=== PATIENT | female | born 1965 | race Caucasian/White ===

== ENCOUNTER → 2022-08-21 | Outpatient (CLI) | payer OTHER, MEDICARE ==
--- NOTE | 2022-08-21 08:40 | CT ---
EXAMINATION TYPE: CT cervical spine wo con DATE OF EXAM: 08/21/2022 COMPARISON: NONE HISTORY: Chronic neck pain, impaired functional mobility, balance, gait and endurance, CT DLP: 905.90 mGycm. Automated Exposure Control for Dose Reduction was Utilized. TECHNIQUE: CT scan of the cervical spine is obtained without contrast, axial images are obtained, sa gittal and coronal reformatted images are also reviewed. FINDINGS: Cervical spine is visualized in its entirety from C1 through upper thoracic levels, demonst rates slight or subtle grade 1 retrolisthesis of C6 on C7. Prevertebral soft tissue appears within n ormal limits. The C1-C2 articulation is within normal limits on the coronal images. Vertebral body h eight and disc space heights are maintained. Review of axial images shows C2-C3 and C3-C4 levels to appear within normal limits. Axial images C4-C5 level suggests central disc protrusion mildly effaces the anterior thecal sac on a xial image 54, bilateral neural foramina are patent. Axial images at C5-C6 levels suggest broad-based left paracentral disc protrusion effacing the maeve lateral thecal sac on axial image 61 and causing asymmetric moderate left-sided neural foraminal narr owing. Finding can be better evaluated with MRI. Axial images at C6-C7 level shows spondylolisthesis with posterior spur disc complex effacing the ant erior thecal sac and causing mild bilateral neural foraminal narrowing. Axial images at C7-T1 level appear within normal limits. Thyroid gland appears within normal limits. Lung apices show no pneumothorax. Mild calcified plaque i n the right carotid bulb is incidentally noted. IMPRESSION: Subtle Spondylolisthesis and multilevel degenerative change in the cervical spine as deta iled above.
--- NOTE | 2022-08-21 08:58 | CT ---
EXAMINATION TYPE: CT chest wo con DATE OF EXAM: 08/21/2022 COMPARISON: NONE HISTORY: Chronic neck and chest pain, impaired functional mobility, balance, gait and endurance, intr actable low back pain CT DLP: 600.00 mGycm. Automated Exposure Control for Dose Reduction was Utilized. TECHNIQUE: CT scan of the thorax is performed without IV contrast. FINDINGS: LUNGS: Focal reticulation or atelectatic/fibrotic change in the posterior left lower lobe axial image 42. No focal consolidation. No suspicious greater than 5 mm pulmonary nodules or masses There is no pleural effusion or pneumothorax seen. The tracheobronchial tree is patent. MEDIASTINUM: Lack of IV contrast is noted to limit evaluation for mediastinal and especially hilar ad enopathy. There are no definitive greater than 1 cm mediastinal lymph nodes. No cardiomegaly or per icardial effusion is seen. Ascending aortic aneurysm up to 4.4 cm axial image 29. At least mild to mo derate coronary artery calcification. OTHER: Cholecystectomy clips are seen. Mid to low lower thoracic spinal stimulator devices present IMPRESSION: No acute pulmonary process.
--- NOTE | 2022-08-21 09:01 | CT ---
EXAMINATION TYPE: CT lumbar spine wo con DATE OF EXAM: 08/21/2022 7:32 AM COMPARISON: None. HISTORY: Chronic neck pain, impaired functional mobility, balance, gait, and endurance, intractable l ow back pain CT DLP: 2455.90 mGycm Automated exposure control for dose reduction was used. Unenhanced CT of the lumbar spine was performed. Bone and soft tissue window settings are submitted as well as coronal and sagittal reconstructions. There are 5 lumbar-type vertebra. Lumbar spine shows satisfactory alignment without evidence of acute fracture or dislocation. Vertebral body heights and disc space heights are fairly well-preserved. Th ere is thoracic spinal stimulator device entering the epidural region at posterior T12-L1 level. Review of the axial images shows T12-L1 through L2-L3 level to appear within normal limits. Axial images at L3-L4 level show mild to moderate facet arthropathy bilaterally. There is mild efface ment of the left posterolateral thecal sac. Axial images at L4-L5 level show mild/moderate facet arthropathy bilaterally. No large disc herniatio n is seen. Spinal canal is grossly preserved. Axial images at L5-S1 level show posterior spurring or bony projections greater right of midline. Spi nal canal is preserved as is increased epidural fat. There is moderate facet arthropathy bilaterally. Bilateral neural foramina are patent. There is mild/moderate calcified plaque of the aorta extending into branch vessels. IMPRESSION: Multilevel degenerative changes in the mid to lumbar spine as detailed above. No acute fi ndings are evident.
== END | disposition home or self-care (01) ==
LOC: RADCTMAIN 06:33
PROVIDERS: ATTEND Student in an Organized Health Care Education/Training Program
DX: M47.812 Spondylosis without myelopathy or radiculopathy, cervical region (principal); M47.816 Spondylosis without myelopathy or radiculopathy, lumbar region; M43.12 Spondylolisthesis, cervical region; G89.29 Other chronic pain; R07.9 Chest pain, unspecified; R26.89 Other abnormalities of gait and mobility; Z74.09 Other reduced mobility
CPT/HCPCS: 71250; 72125; 72131